=== PATIENT | male | born 1950 | race Caucasian/White ===

== ENCOUNTER → 2016-10-18 | Outpatient (CLI) | payer OTHER ==
[~2016-10-18] MED LIST: PRILOSEC 10MG C10 M1 PO
== END ==
LOC: ULTRA 12:15
DX: E04.2 Nontoxic multinodular goiter (principal)

== ENCOUNTER → 2017-08-18 | Outpatient (CLI) | payer OTHER | LOC: ULTRA 10:24 | DX: E04.2 Nontoxic multinodular goiter (principal) ==

== ENCOUNTER → 2020-06-09 | Outpatient (CLI) | payer BC, OTHER | LOC: ULTRA 08:55 | PROVIDERS: ATTEND Family Medicine | DX: E04.2 Nontoxic multinodular goiter (principal) ==